=== PATIENT | male | born 1980 | race Hispanic/Latino ===

== ENCOUNTER 2019-03-24 23:20 | Emergency (ER) | payer BC ==
[2019-03-24 23:44] LABS: #Basophils 0.1 thou/uL (0.0-0.2); #Eosinphils 0.2 thou/uL (0.0-0.7); #Lymphocytes 2.9 thou/uL (1.20-3.40); #Monocytes 0.7 thou/uL (0.11-0.59); #Neutrophils 5.1 thou/uL (1.40-6.50); %Eosinophils 2.5 % (0.0-10.0); %Neutrophils 56.5 % (42.0-75.0); Hemoglobin 13.2 g/dL (14.0-18.0); Mean Corpuscular HGB CONC 32.5 g/dL (32.0-36.0); Mean Corpuscular Hemoglobin 28.5 pg (27.0-31.0); Mean Corpuscular Volume 87.7 fL (78.0-98.0); Platelet Count 308 thou/uL (130-400); Red Blood Cell (RBC) Count 4.61 mill/uL (4.70-6.10)
[2019-03-24 23:49] LABS: Prothrombin Time 13.7 SEC (12.0-14.7)
[2019-03-25] LABS: PTT 20.4 SEC (22.9-36.1)
[2019-03-25 00:06] LABS: ALT (SGPT) 36 U/L (8-55); AST (SGOT) 21 U/L (5-34); Albumin 3.5 g/dL (3.5-5.0); Alkaline Phosphatase 128 U/L (40-150); Anion Gap 13 mmol/L (10-20); BUN (Urea Nitrogen) 15 mg/dL (8.9-20.6); Bilirubin, Total 0.2 mg/dL (0.2-1.2); Calc. Creatinine Clearance 0 mL/min (70-130); Calcium 8.4 mg/dL (7.8-10.44); Carbon Dioxide 22 mmol/L (22-29); Chloride 107 mmol/L (98-107); Estimated GFR-MDRD 73; Globulin 2.6 g/dL (2.4-3.5); Glucose 208 mg/dL (70-105); Potassium 3.8 mmol/L (3.5-5.1); Protein, Total 6.1 g/dL (6.0-8.3); Sodium 138 mmol/L (136-145)
[2019-03-25 01:55] LABS: Hemoglobin 13.8 g/dL (14.0-18.0)
== END 2019-03-25 02:15 | disposition home or self-care (01) ==
LOC: ERS 23:20
DX: I83.892 Varicose veins of left lower extremity with other complications (principal); E11.9 Type 2 diabetes mellitus without complications; F32.9 Major depressive disorder, single episode, unspecified; I10 Essential (primary) hypertension; K21.9 Gastro-esophageal reflux disease without esophagitis
CPT/HCPCS: 12001; 36415; 80053; 83605; 85014; 85018; 85025; 85610; 85730; 86850; 86900; 86901; 96360; 96361

== ENCOUNTER 2019-09-05 08:51 | Emergency (ER) | payer BC, OTHER ==
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
[2019-09-05 10:27] LABS: #Eosinphils 0.2 thou/uL (0.0-0.7); #Lymphocytes 2.4 thou/uL (1.20-3.40); #Monocytes 0.9 thou/uL (0.11-0.59); #Neutrophils 11.4 thou/uL (1.40-6.50); %Basophils 0.1 % (0.0-1.0); %Eosinophils 1.5 % (0.0-10.0); %Lymphocytes 15.9 % (21.0-51.0); %Monocytes 6.2 % (0.0-10.0); %Neutrophils 76.3 % (42.0-75.0); Hemoglobin 13.9 g/dL (14.0-18.0); Mean Corpuscular HGB CONC 32.3 g/dL (32.0-36.0); Mean Corpuscular Hemoglobin 27.9 pg (27.0-31.0); Mean Corpuscular Volume 86.2 fL (78.0-98.0); Mean Platelet Volume 7.3 fL (7.4-10.4); Platelet Count 358 thou/uL (130-400); White Blood Cell (WBC) Count 14.9 thou/uL (4.8-10.8)
[2019-09-05 10:37] LABS: ALT (SGPT) 28 U/L (8-55); AST (SGOT) 22 U/L (5-34); Albumin 3.9 g/dL (3.5-5.0); Alkaline Phosphatase 116 U/L (40-110); Anion Gap 13 mmol/L (10-20); BUN (Urea Nitrogen) 15 mg/dL (8.9-20.6); Bilirubin, Total 0.3 mg/dL (0.2-1.2); Calc. Creatinine Clearance 0 mL/min (70-130); Calcium 8.9 mg/dL (7.8-10.44); Carbon Dioxide 24 mmol/L (22-29); Chloride 104 mmol/L (98-107); Estimated GFR-MDRD Greater than 90; Globulin 2.3 g/dL (2.4-3.5); Glucose 198 mg/dL (70-105); Potassium 4.7 mmol/L (3.5-5.1); Protein, Total 6.2 g/dL (6.0-8.3); Sodium 136 mmol/L (136-145)
--- NOTE | 2019-09-05 10:42 | CT ---
CT BRAIN WITHOUT CONTRAST: HISTORY: Injury, headache FINDINGS: No evidence of acute infarct, hemorrhage, midline shift or abnormal extra-axial fluid collections is seen. The ventricular size is appropriate and the basilar cisterns are patent. The bony calvarium is intact. The visualized paranasal sinuses and mastoid air cells are well aerated. IMPRESSION: No CT evidence of acute intracranial process.
--- NOTE | 2019-09-05 10:48 | CT ---
CT CERVICAL SPINE WITH CORONAL AND SAGITTAL REFORMATIONS AND NO IV CONTRAST: HISTORY: Injury, neck pain FINDINGS: There is loss of cervical lordosis with straightening of the cervical spine. No fracture, subluxation or facet malalignment is identified. No prevertebral soft tissue swelling is apparent. The visualized lung apices are unremarkable. IMPRESSION: No CT evidence for fracture or traumatic subluxation.
[2019-09-05] MEDS ORDERED: ISOVUE-370 76%-LOCM 1 ML ONE (11:28)
[2019-09-05] MEDS ORDERED: Fentanyl 100 MCG/2 ML VIAL ONE (11:30)
[2019-09-05] MEDS ORDERED: Ondansetron PF 4 MG/2 ML Vial ONE (11:30)
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
[2019-09-05 12:22] LABS: Bilirubin Negative (Negative); Blood, Urine Negative (Negative); Clarity Clear (Clear); Glucose, Urine (Dipstick) Greater than 1000 mg/dL (Negative); Leukocyte Negative Leu/uL (Negative); Nitrite Negative (Negative); Protein, Urine (Dipstick) 20 mg/dL (Neg-Trace); Urobilinogen Normal mg/dL (Less than 2)
[2019-09-05] MEDS ORDERED: Adacel (T-DAP) 0.5 ML SYRINGE ONE (12:33)
[2019-09-05] MEDS ORDERED: Lidocaine 1% w/Epinephrine 1:100K 20 ML VIAL ONE (13:15)
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
== END 2019-09-05 14:17 | disposition home or self-care (01) ==
LOC: ERS 08:51
DX: S01.01XA Laceration without foreign body of scalp, initial encounter (principal); S80.12XA Contusion of left lower leg, initial encounter; I10 Essential (primary) hypertension; E11.9 Type 2 diabetes mellitus without complications; K21.9 Gastro-esophageal reflux disease without esophagitis; F32.9 Major depressive disorder, single episode, unspecified; Z79.84 Long term (current) use of oral hypoglycemic drugs; Z79.899 Other long term (current) drug therapy; Z23 Encounter for immunization; V59.9XXA Occupant (driver) (passenger) of pick-up truck or van injured in unspecified traffic accident, initial encounter
CPT/HCPCS: 12002; 70450; 71045; 71260; 72125; 74177; 80053; 81003; 85025; 86850; 86900; 86901; 90471; 90715; 93005; 96374; 96375; J2405; J3010

== ENCOUNTER 2019-09-13 09:30 | Emergency (ER) | payer BC | END 2019-09-13 10:18 | disposition home or self-care (01) | LOC: ERS 09:30 | DX: S01.01XD Laceration without foreign body of scalp, subsequent encounter (principal); E11.9 Type 2 diabetes mellitus without complications; I10 Essential (primary) hypertension; X58.XXXD Exposure to other specified factors, subsequent encounter ==

== ENCOUNTER 2019-09-15 13:13 | Emergency (ER) | payer BC ==
--- NOTE | 2019-09-15 14:10 | ULT ---
US Venous Doppler Lt Unilat History: Pain Comparison: CT exam August 2019 Findings: Real-time grayscale, color, and spectral analysis of the left lower extremity venous system was performed. The common femoral, femoral, proximal portions greater saphenous and deep femoral veins as well as the popliteal posterior tibial veins were interrogated. Normal flow, augmentation, and compression. Similar size of the hematoma on the right lower extremity . Impression: Medial lower leg hematoma. No deep venous thrombosis.
== END 2019-09-15 14:38 | disposition home or self-care (01) ==
LOC: SCSER 13:13
DX: M79.81 Nontraumatic hematoma of soft tissue (principal); E11.9 Type 2 diabetes mellitus without complications; I10 Essential (primary) hypertension; K21.9 Gastro-esophageal reflux disease without esophagitis; F32.9 Major depressive disorder, single episode, unspecified; Z79.84 Long term (current) use of oral hypoglycemic drugs; Z79.899 Other long term (current) drug therapy

== ENCOUNTER 2019-09-25 11:18 | Inpatient (IN) | payer OTHER, SELFPAY ==
--- NOTE | 2019-09-25 12:45 | ULT ---
EXAM: Left lower extremity venous Doppler US HISTORY: left lower extremity edema and pain FINDINGS: Grayscale, color-flow, Doppler evaluation, spectral analysis of the left lower extremity venous struc tures is performed with 2-D imaging. The left common femoral, superficial femoral, popliteal, posterior tibial, proximal greater saphenous and profunda femoral veins are imaged. There is normal luminal compressibility, flow, and augmentation the visualized deep venous structures of the left lower extremity. IMPRESSION: No evidence of a deep vein thrombosis in the left lower extremity.
[2019-09-25 13:12] LABS: Hemoglobin 14.5 g/dL (14.0-18.0); Mean Corpuscular HGB CONC 32.1 g/dL (32.0-36.0); Mean Corpuscular Hemoglobin 27.5 pg (27.0-31.0); Mean Corpuscular Volume 85.7 fL (78.0-98.0); RBC Distribution Width 13.2 % (11.5-14.5); Red Blood Cell (RBC) Count 5.27 mill/uL (4.70-6.10); White Blood Cell (WBC) Count 8.3 thou/uL (4.8-10.8)
[2019-09-25] MEDS ORDERED: Piperacillin/Tazobactam 4.5 GM VIAL ONE (13:28)
[2019-09-25 13:35] LABS: ALT (SGPT) 22 U/L (8-55); AST (SGOT) 17 U/L (5-34); Albumin 4.1 g/dL (3.5-5.0); Alkaline Phosphatase 171 U/L (40-110); Anion Gap 17 mmol/L (10-20); BUN (Urea Nitrogen) 11 mg/dL (8.9-20.6); Bilirubin, Total 0.3 mg/dL (0.2-1.2); Calc. Creatinine Clearance 0 mL/min (70-130); Calcium 9.2 mg/dL (7.8-10.44); Carbon Dioxide 18 mmol/L (22-29); Chloride 103 mmol/L (98-107); Estimated GFR-MDRD 73; Globulin 3.7 g/dL (2.4-3.5); Glucose 390 mg/dL (70-105); Potassium 4.7 mmol/L (3.5-5.1); Protein, Total 7.8 g/dL (6.0-8.3); Sodium 133 mmol/L (136-145)
[2019-09-25 13:39] LABS: #Eosinphils 0.4 thou/uL (0.0-0.7); #Lymphocytes 2.3 thou/uL (1.20-3.40); #Monocytes 0.6 thou/uL (0.11-0.59); %Eosinophils 4.3 % (0.0-10.0); %Monocytes 7.1 % (0.0-10.0); %Neutrophils 60.6 % (42.0-75.0)
[2019-09-25 13:42] LABS: MDiff Complete? YES; Mean Platelet Volume 8.6 fL (7.4-10.4); Platelet Clumps SLIGHT; Platelet Morphology Comment PLT clumps seen-LOW; Polychromasia SLIGHT = 2-3 cells (100X) (0-2/hpf)
[2019-09-25] MEDS ORDERED: Iopamidol-370 76% 500 ML 1 ML ONE (14:24)
[2019-09-25] MEDS ORDERED: Vancomycin 1.5 GRAM/300 ML BAG 1.5 GM in Premix Bag 1 BAG IVPB SCH (14:30)
[2019-09-25 16:32] LABS: Lactic Acid 1.2 mmol/L (0.5-2.2)
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
[2019-09-25] MEDS ORDERED: Dextrose 50% Abboject 50 ML SYRINGE SLOW IVP PRN (20:39)
[2019-09-25] MEDS ORDERED: Insulin Regular 300 UNITS/3 ML VIAL SC PRN ×2 (20:39)
[2019-09-25] MEDS ORDERED: hydrALAZINE 20 MG/ML VIAL SLOW IVP PRN (20:39)
[2019-09-25] MEDS ORDERED: Promethazine HCl 25 MG/ML VIAL IM PRN ×2 (20:39)
[2019-09-25] MEDS ORDERED: Dextrose 5% in Water 1,000 ML IV PRN (20:39)
[2019-09-25] MEDS ORDERED: Ondansetron ODT 4 MG TAB PO PRN (20:39)
[2019-09-25] MEDS ORDERED: Ondansetron PF 4 MG/2 ML Vial IVP PRN (20:39)
[2019-09-25] MEDS ORDERED: Acetaminophen 325 MG TAB PO PRN (20:54)
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
[2019-09-25] MEDS: Piperacillin/Tazobactam 3.375 GM in Sodium Chloride 0.9% 100 ML IVPB SCH (21:20)
[2019-09-25] MEDS: Famotidine 20 MG TAB PO SCH (21:21)
[2019-09-25] MEDS: Sodium Chloride 0.9% 1,000 ML IV SCH ×2 (21:21→21:32)
[2019-09-25 22:17] VITALS: BMI 47.2
[2019-09-25] MEDS: Vancomycin 1.5 GRAM/300 ML BAG 1.5 GM in Premix Bag 1 BAG IVPB SCH (23:17)
[2019-09-26] MEDS: Piperacillin/Tazobactam 3.375 GM in Sodium Chloride 0.9% 100 ML IVPB SCH ×2 (03:01→08:37)
[2019-09-26 04:33] LABS: #Basophils 0.1 thou/uL (0.0-0.2); #Eosinphils 0.4 thou/uL (0.0-0.7); #Lymphocytes 2.4 thou/uL (1.20-3.40); #Monocytes 0.6 thou/uL (0.11-0.59); #Neutrophils 4.4 thou/uL (1.40-6.50); %Basophils 0.7 % (0.0-1.0); %Eosinophils 4.9 % (0.0-10.0); %Lymphocytes 30.2 % (21.0-51.0); %Monocytes 8.1 % (0.0-10.0); Hemoglobin 13.4 g/dL (14.0-18.0); Mean Corpuscular HGB CONC 32.8 g/dL (32.0-36.0); Mean Corpuscular Volume 85.3 fL (78.0-98.0); Mean Platelet Volume 6.9 fL (7.4-10.4); Platelet Count 413 thou/uL (130-400); RBC Distribution Width 13.3 % (11.5-14.5); Red Blood Cell (RBC) Count 4.81 mill/uL (4.70-6.10); White Blood Cell (WBC) Count 7.9 thou/uL (4.8-10.8)
[2019-09-26 04:49] LABS: Anion Gap 12 mmol/L (10-20); BUN (Urea Nitrogen) 14 mg/dL (8.9-20.6); Calc. Creatinine Clearance 198 mL/min (70-130); Calcium 9.1 mg/dL (7.8-10.44); Carbon Dioxide 23 mmol/L (22-29); Chloride 105 mmol/L (98-107); Estimated GFR-MDRD 90; Glucose 254 mg/dL (70-105); Potassium 4.1 mmol/L (3.5-5.1); Sodium 136 mmol/L (136-145)
[2019-09-26] MEDS ORDERED: Loratadine 10 MG TAB PO SCH ×2 (05:00→09:00)
[2019-09-26] MEDS: Sodium Chloride 0.9% 1,000 ML IV SCH (05:00)
[2019-09-26 07:35] VITALS: TEMP 98.7
[2019-09-26] MEDS: Famotidine 20 MG TAB PO SCH ×2 (08:40→11:07)
[2019-09-26] MEDS ORDERED: Ibuprofen 600 MG TAB PO PRN (09:28)
[2019-09-26] MEDS ORDERED: Acetaminophen 500 MG TAB PO PRN (09:28)
[2019-09-26 09:51] LABS: Hemoglobin A1c 7.8 % (4.0-6.0)
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
[2019-09-26] MEDS ORDERED: Ciprofloxacin 500 MG TAB PO SCH ×2 (10:15→20:00)
[2019-09-26] MEDS ORDERED: Sulfameth/Trimethoprim DS 800-160mg TAB PO SCH ×2 (10:15→21:00)
[2019-09-26] MEDS: Vancomycin 1.5 GRAM/300 ML BAG 1.5 GM in Premix Bag 1 BAG IVPB SCH (10:49)
[2019-09-26 12:11] VITALS: BP 143/83
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
[2019-09-26] MEDS ORDERED: metFORMIN 500 MG TAB PO SCH (17:00)
[2019-09-26] MEDS ORDERED: FLUoxetine HCl 20 MG CAP PO SCH (21:00)
[2019-09-27] MEDS ORDERED: Enoxaparin Sodium 30 MG/0.3 ML SYRINGE SC SCH (09:00)
[2019-09-27] MEDS ORDERED: Loratadine 10 MG TAB PO SCH (09:00)
[2019-09-27] MEDS ORDERED: Valsartan 80 MG TAB PO SCH (09:00)
== END 2019-09-26 13:04 | disposition home or self-care (01) | DRG 605 ==
LOC: ERS 11:18 → SURG A 20:36
PROVIDERS: ADMIT Surgery; ATTEND Surgery
DX: S80.12XA Contusion of left lower leg, initial encounter (principal); Z68.42 Body mass index [BMI] 45.0-49.9, adult; I10 Essential (primary) hypertension; E11.65 Type 2 diabetes mellitus with hyperglycemia; E88.81 Metabolic syndrome and other insulin resistance; E66.01 Morbid (severe) obesity due to excess calories; V89.2XXA Person injured in unspecified motor-vehicle accident, traffic, initial encounter; Y93.89 Activity, other specified; Y92.89 Other specified places as the place of occurrence of the external cause
CPT/HCPCS: 36415; 36416; 80048; 80053; 83036; 83605; 85025; 85652; 86140; 87040; J1815; J2543; J3490; Q9967

== ENCOUNTER 2020-01-17 23:10 | Emergency (ER) | payer BC, SELFPAY ==
--- NOTE | 2020-01-17 23:48 | RAD ---
EXAM: CHEST TWO VIEWS 01/17/2020 11:46 PM HISTORY: Cough with flulike symptom COMPARISON: September 05, 2019 FINDINGS: Lungs: No acute airspace consolidation. Heart: Normal in size and contour. Pulmonary Vessels: Normal. Costophrenic Angles: Clear. Pneumothorax: None. Osseous Structures: Intact. Additional Findings: None. IMPRESSION: No significant acute intrathoracic disease.
== END 2020-01-17 23:52 | disposition home or self-care (01) ==
LOC: ERS 23:10
DX: J06.9 Acute upper respiratory infection, unspecified (principal); K21.9 Gastro-esophageal reflux disease without esophagitis; E11.9 Type 2 diabetes mellitus without complications; I10 Essential (primary) hypertension; F32.9 Major depressive disorder, single episode, unspecified; Z79.84 Long term (current) use of oral hypoglycemic drugs; Z79.899 Other long term (current) drug therapy
CPT/HCPCS: 71046

== ENCOUNTER 2022-07-25 10:53 | Emergency (ER) | payer SELFPAY ==
[2022-07-25] MEDS ORDERED: Dexameth. Sod Phosp. 10 MG/ML (CHEMO USE ONLY) ONE (12:11)
== END 2022-07-25 13:07 | disposition home or self-care (01) ==
LOC: ERS 10:53
DX: J32.9 Chronic sinusitis, unspecified (principal); E11.9 Type 2 diabetes mellitus without complications; I10 Essential (primary) hypertension; K21.9 Gastro-esophageal reflux disease without esophagitis; Z20.822 Contact with and (suspected) exposure to COVID-19
CPT/HCPCS: 99283; J1100; U0003; U0005